=== PATIENT | female | born 1960 | race Caucasian/White ===

== ENCOUNTER 2023-09-18 15:17 | Emergency (ER) | payer OTHER ==
[~2023-09-18] VITALS: Ht 167.6 cm; Wt 104.5 kg
[2023-09-18] MEDS ORDERED: normal saline 1000ml 1,000 ML IV ONE (16:05)
[2023-09-18 16:46] LABS: MEAN PLATELET VOLUME 7.2 FL (7.4-10.4); MONOCYTES # (AUTO) 0.6 X10'3 (0-0.9)
[2023-09-18 16:51] LABS: BASOPHILS % (AUTO) 0.4 % (0-1); EOSINOPHILS # (AUTO) 0.2 X10'3 (0-0.9); EOSINOPHILS % (AUTO) 2.7 % (0-6); HEMATOCRIT 37.1 % (35.0-45.0); HEMOGLOBIN 11.9 g/dl (12.0-16.0); LYMPHOCYTES # (AUTO) 2.3 X10'3 (1.1-4.8); LYMPHOCYTES % (AUTO) 30.6 % (21-51); MEAN CORPUSCULAR HEMOGLOBIN 25.7 PG (27.0-31.0); MEAN CORPUSCULAR HGB CONC 32.2 g/dL (33.0-36.5); MEAN CORPUSCULAR VOLUME 79.6 FL (78-98); MONOCYTES % (AUTO) 7.5 % (2-12); NEUTROPHILS # (AUTO) 4.4 X10'3 (1.8-7.7); NEUTROPHILS % (AUTO) 58.8 % (42-75); PLATELET COUNT 304 X10'3 (140-440); RED BLOOD COUNT 4.66 X10'6 (4.20-5.60); RED CELL DISTRIBUTION WIDTH 14.8 % (11.5-14.5); WHITE BLOOD COUNT 7.5 X10'3 (4.5-11.0)
[2023-09-18 16:59] LABS: ALANINE AMINOTRANSFERASE 19 U/L (12-78); ALBUMIN 3.6 G/DL (3.4-5.0); ALKALINE PHOSPHATASE 89 IU/L (46-116); ANION GAP 6 (8-16); ASPARTATE AMINO TRANSFERASE 18 U/L (10-37); BILIRUBIN,TOTAL 0.4 MG/DL (0.1-1.0); BLOOD UREA NITROGEN 18 MG/DL (7-18); BUN/CREATININE RATIO 19.8 (10.0-20.0); CALCIUM 9.3 MG/DL (8.5-10.1); CHLORIDE 101 MMOL/L (99-107); CREATININE 0.91 MG/DL (0.40-0.90); GLUCOSE 101 MG/DL (70-104); POTASSIUM 3.1 MMOL/L (3.5-5.1); SODIUM 138 MMOL/L (135-145); TOTAL CARBON DIOXIDE 31.5 MMOL/L (24-32); TOTAL PROTEIN 7.1 G/DL (6.4-8.2); eCRCL 59 ML/MIN; eGFR 62 ML/MIN
[2023-09-18 17:08] LABS: PROTHROMBIN TIME 10.8 SECONDS (9.0-12.0)
[2023-09-18 18:15] VITALS: BP 112/46; PULSE 62; RESP 12
[2023-09-18] MEDS ORDERED: MIDAZolam 1 MG/ML 5ML VIAL ONE (18:16)
[2023-09-18] MEDS ORDERED: LIDOcaine Viscous 15ml cup ONE (18:16)
[2023-09-18] MEDS ORDERED: fentaNYL/PF 50MCG/1 ML 2ML syringe ONE (18:16)
[2023-09-18 18:40] VITALS: BP 112/46; PULSE 66; RESP 10; O2SAT 98
[2023-09-18 18:50] VITALS: BP 109/48; PULSE 63; RESP 20; O2SAT 99
[2023-09-18 19:00] VITALS: BP 125/55; PULSE 66; RESP 20; O2SAT 99
[2023-09-18 19:10] VITALS: BP 116/59; PULSE 61; RESP 19; O2SAT 100
[2023-09-18] MEDS ORDERED: PANT-47 PO (19:28)
[2023-09-18 19:35] VITALS: BP 106/65; PULSE 79; RESP 18; TEMP 98; O2SAT 99
== END 2023-09-18 19:38 | disposition home or self-care (01) ==
LOC: ER 15:18
DX: T18.128A Food in esophagus causing other injury, initial encounter (principal); K20.90 Esophagitis, unspecified without bleeding; X58.XXXA Exposure to other specified factors, initial encounter; Y93.9 Activity, unspecified; Y92.89 Other specified places as the place of occurrence of the external cause; Y99.8 Other external cause status
CPT/HCPCS: 36415; 43247; 80053; 85025; 85610; 96360; 99152; 99285; J2250; J3010; J7030; Z7512; A4620